=== PATIENT | male | born 1970 | race Caucasian/White ===

== ENCOUNTER 2024-06-17 12:20 | Outpatient (RCR) | payer OTHER, SELFPAY ==
[2024-06-03 13:20] VITALS: BP 150/67
[2024-06-03] MEDS: CLARITIN 10 MG PO (13:35)
[2024-06-03] MEDS: TYLENOL 650 MG PO (13:35)
[2024-06-03] MEDS: SOLU-MEDROL PF 51.92 MG IV (13:36)
[2024-06-03] MEDS: LEQEMBI 258.35 MG IV ×2 (14:05)
[2024-06-03 15:11] VITALS: BP 138/66
[2024-06-17 13:12] VITALS: BP 139/61
[2024-06-17] MEDS: TYLENOL 650 MG PO (13:25)
[2024-06-17] MEDS: CLARITIN 10 MG PO (13:25)
[2024-06-17] MEDS: SOLU-MEDROL PF 51.92 MG IV (13:25)
[2024-06-17] MEDS: LEQEMBI 258.35 MG IV ×2 (13:50)
[2024-06-17 15:02] VITALS: BP 127/63
== END 2024-06-18 14:34 | disposition home or self-care (01) ==
LOC: OID 12:20
PROVIDERS: ATTENDING PHYSICIAN Specialist; FAMILY PHYSICIAN Family Medicine
DX: G30.9 Alzheimer's disease, unspecified (principal)
CPT/HCPCS: 96365; 96367; J0174